=== PATIENT | female | born 1955 | race African-American/Black ===

== ENCOUNTER 2020-03-17 21:25 | Inpatient (IN) | payer MEDICAID ==
[~2020-03-17] VITALS: Ht 167.6 cm; Wt 188.2 kg
[~2020-03-17 21:25] MED LIST: ALBU18HF2 IH; ALBU2.5V13 IH; ASPI-1497 PO; ATOR20TA65 PO; CYCL5TAB PO; DILT180C66 MT; FLUT1DIS3 IH; HYDR-3927 PO; HYDR10SY11 PO; HYDR25TA PO; IBUP-2028 PO; KEPP500 PO; LEVE500T19 PO; LORA10TA7 PO; MELO-106 PO; METF500T20 PO; MONT10TA26 PO; SERT-112 PO; ZIPR80CA2 PO
[2020-03-18] MEDS ORDERED: ASPIRIN 81MG TABLET PO ONE (03:45)
[2020-03-18] MEDS ORDERED: NITROGLYCERIN 0.4MG TABLET SL SL PRN (03:45)
[2020-03-18 05:20] LABS: BASOPHILS % 0.7 % (0.0-2.0); CHLORIDE 105 mEq/L (98-107); EOSINOPHILS % 1.3 % (0.0-5.0); HEMATOCRIT. 40.1 % (36.0-48.0); LYMPHOCYTES % 31.4 % (20.0-50.0); MEAN CORPUSCULAR HEMOGLOBIN 30.5 pg (28.0-32.0); MEAN CORPUSCULAR VOLUME 93.9 fL (81.0-99.0); MEAN PLATELET VOLUME 10.8 fl (7.4-10.4); MONOCYTES % 5.8 % (2.0-8.0); NEUTROPHILS % 60.8 % (40.0-76.0); PLATELET 254 x1000/uL (130-400); RED BLOOD CELL COUNT 4.28 mill/uL (4.2-5.4); RED CELL DISTRIBUTION WIDTH 16.8 % (11.6-14.6)
[2020-03-18] MEDS ORDERED: ONDANSETRON HCL 4MG/2ML INJ IV PRN (11:45)
[2020-03-18] MEDS ORDERED: ACETAMINOPHEN 325MG TABLET PO PRN (11:45)
[2020-03-18] MEDS ORDERED: ENOXAPARIN 40MG/0.4ML SYR SUBCUT SCH (12:00)
[2020-03-18] MEDS: APIXABAN 5 MG TABLET PO SCH (14:30)
[2020-03-18] MEDS: DILTIAZEM HCL 60MG TABLET PO SCH (18:00)
[2020-03-18] MEDS: TRAMADOL 50MG TABLET PO PRN (20:19)
[2020-03-18 21:20] VITALS: BP 157/87
[2020-03-19 00:20] VITALS: BP 156/77
[2020-03-19] MEDS: LEVETIRACETAM 500MG TABLET PO SCH ×3 (01:30→22:35)
[2020-03-19] MEDS: APIXABAN 5 MG TABLET PO SCH ×3 (01:30→22:35)
[2020-03-19] MEDS: ATORVASTATIN CALCIUM 20MG TABLET PO SCH ×2 (01:30→22:34)
[2020-03-19] MEDS: DILTIAZEM HCL 60MG TABLET PO SCH ×2 (01:31→06:40)
[2020-03-19] MEDS ORDERED: HYDR50TA55 MT (02:35)
[2020-03-19] MEDS ORDERED: LACT10SO6 MT (02:35)
[2020-03-19] MEDS ORDERED: GABA-531 MT (02:35)
[2020-03-19] MEDS ORDERED: PANT40TA4 MT (02:35)
[2020-03-19] MEDS ORDERED: ALBU18HF2 IH ×2 (02:35)
[2020-03-19] MEDS ORDERED: MULT-1146 MT (02:35)
[2020-03-19] MEDS ORDERED: METH500T6 MT (02:35)
[2020-03-19] MEDS ORDERED: LISI-604 MT (02:35)
[2020-03-19] MEDS ORDERED: LIDO1ADH48 TP (02:35)
[2020-03-19] MEDS ORDERED: AMLO2.5T45 MT (02:35)
[2020-03-19] MEDS ORDERED: LEVO25TA7 MT (02:35)
[2020-03-19] MEDS ORDERED: LURA80TA MT (02:35)
[2020-03-19] MEDS ORDERED: DOCU-150 MT (02:35)
[2020-03-19] MEDS ORDERED: LIDO30CR46 TP (02:44)
[2020-03-19] MEDS ORDERED: LIDOCAINE TP PRN (03:15)
[2020-03-19] MEDS ORDERED: LACTULOSE 20G/30ML UDC PO PRN (03:15)
[2020-03-19] MEDS ORDERED: DEXTROSE 50% WATER 50ML SYRINGE IV PRN (03:30)
[2020-03-19] MEDS ORDERED: IPRATROPIUM/ALBUTEROL 0.5-3(2.5)MG/3ML NEB HHN PRN (03:30)
[2020-03-19] MEDS ORDERED: CYCLOBENZAPRINE 10MG TABLET PO PRN (03:30)
[2020-03-19] MEDS ORDERED: SUCR1TAB PO (03:38)
[2020-03-19] MEDS: TRAMADOL 50MG TABLET PO PRN (03:58)
[2020-03-19 04:00] VITALS: BP 132/58
[2020-03-19] MEDS: PANTOPRAZOLE 40MG DR TABLET PO SCH (06:41)
[2020-03-19] MEDS: BLOOD SUGAR DIAGNOSTIC STRIP TEST SCH ×4 (06:42→21:00)
[2020-03-19] MEDS ORDERED: LEVOTHYROXINE SODIUM 25MCG TABLET PO SCH (07:20)
[2020-03-19 08:00] VITALS: BP 140/60
[2020-03-19] MEDS: ALBUTEROL (0.083%) 2.5MG/3ML NEB HHN SCH ×3 (08:41→21:43)
[2020-03-19] MEDS: BUDESONIDE 0.5MG/2ML NEB HHN SCH ×2 (08:42→13:59)
[2020-03-19] MEDS ORDERED: MEDICATION NOT ON FORMULARY EA (Fluticasone/Salmeterol (Advair 250-50 Diskus) 1 EACH) IH SCH (09:00)
[2020-03-19] MEDS ORDERED: INFLUENZA VACCINE 05/PF 0.5 ML VIAL IM ONE (10:00)
[2020-03-19] MEDS: INSULIN LISPRO 100 UNITS/ML SUBCUT SCH ×4 (10:01→21:00)
[2020-03-19] MEDS: ASPIRIN 81MG TABLET PO SCH (10:01)
[2020-03-19] MEDS: MULTIVITAMINS,THER W-MINERALS TABLET PO SCH (10:02)
[2020-03-19] MEDS: METFORMIN HCL 500MG TABLET PO SCH ×2 (10:02→18:36)
[2020-03-19] MEDS: GABAPENTIN 300MG CAPSULE PO SCH ×3 (10:03→18:36)
[2020-03-19] MEDS: DOCUSATE SODIUM 100MG CAPSULE PO SCH ×2 (10:03→17:00)
[2020-03-19] MEDS: SERTRALINE HCL 100MG TABLET PO SCH (10:03)
[2020-03-19] MEDS: ZIPRASIDONE HCL 40MG CAPSULE PO SCH (10:04)
[2020-03-19] MEDS: LISINOPRIL 20MG TABLET PO SCH (10:05)
[2020-03-19 11:00] LABS: BASOPHILS % 0.8 % (0.0-2.0); EOSINOPHILS % 1.9 % (0.0-5.0); HEMATOCRIT. 36.9 % (36.0-48.0); HEMOGLOBIN. 12.2 g/dL (12.0-16.0); LYMPHOCYTES % 28.4 % (20.0-50.0); MEAN CORPUSCULAR HEMOGLOBIN 31.2 pg (28.0-32.0); MEAN CORPUSCULAR VOLUME 94.4 fL (81.0-99.0); MEAN PLATELET VOLUME 10.1 fl (7.4-10.4); MONOCYTES % 4.9 % (2.0-8.0); PLATELET 215 x1000/uL (130-400); RED BLOOD CELL COUNT 3.91 mill/uL (4.2-5.4); RED CELL DISTRIBUTION WIDTH 17.1 % (11.6-14.6)
[2020-03-19 11:15] LABS: CHLORIDE 105 mEq/L (98-107)
[2020-03-19 11:24] LABS: HDL CHOLESTEROL 45 mg/dL (40-59); LDL CHOLESTEROL 131 mg/dL (5-100); T4 FREE 0.48 ng/dL (0.76-1.46)
[2020-03-19 12:00] VITALS: BP 123/56
[2020-03-19] MEDS: DILTIAZEM HCL 90MG TABLET PO SCH ×2 (12:00→18:00)
[2020-03-19] MEDS: LIDOCAINE 5% PATCH TOP SCH (13:00)
[2020-03-19 16:00] VITALS: BP 133/58
[2020-03-19] MEDS ORDERED: MONTELUKAST SODIUM 10MG TABLET PO SCH (17:00)
[2020-03-19 20:00] VITALS: BP 140/66
[2020-03-19] MEDS ORDERED: HYDROXYZINE 25MG TABLET PO PRN (21:00)
[2020-03-19] MEDS ORDERED: MEDICATION NOT ON FORMULARY EA (Lurasidone Hcl (Latuda) 1 TAB) MT SCH (21:00)
[2020-03-20 00:28] VITALS: BP 116/52
[2020-03-20] MEDS: DILTIAZEM HCL 90MG TABLET PO SCH ×3 (00:53→12:00)
[2020-03-20] MEDS: ALBUTEROL (0.083%) 2.5MG/3ML NEB HHN SCH ×3 (01:12→12:18)
[2020-03-20 04:00] VITALS: BP 133/66
[2020-03-20] MEDS: PANTOPRAZOLE 40MG DR TABLET PO SCH (06:50)
[2020-03-20] MEDS: TRAMADOL 50MG TABLET PO PRN (06:59)
[2020-03-20] MEDS: BLOOD SUGAR DIAGNOSTIC STRIP TEST SCH ×2 (07:20→11:58)
[2020-03-20] MEDS ORDERED: LEVOTHYROXINE SODIUM 50MCG TABLET PO SCH (07:20)
[2020-03-20 08:00] VITALS: BP 120/60
[2020-03-20] MEDS: METFORMIN HCL 500MG TABLET PO SCH (08:13)
[2020-03-20] MEDS: INSULIN LISPRO 100 UNITS/ML SUBCUT SCH ×2 (08:16→12:50)
[2020-03-20] MEDS: BUDESONIDE 0.5MG/2ML NEB HHN SCH (08:30)
[2020-03-20] MEDS: GABAPENTIN 300MG CAPSULE PO SCH ×2 (09:30→13:17)
[2020-03-20] MEDS: LEVETIRACETAM 500MG TABLET PO SCH (09:30)
[2020-03-20] MEDS: APIXABAN 5 MG TABLET PO SCH (09:30)
[2020-03-20] MEDS: SERTRALINE HCL 100MG TABLET PO SCH (09:30)
[2020-03-20] MEDS: DOCUSATE SODIUM 100MG CAPSULE PO SCH (09:30)
[2020-03-20] MEDS: MULTIVITAMINS,THER W-MINERALS TABLET PO SCH (09:30)
[2020-03-20] MEDS: ZIPRASIDONE HCL 40MG CAPSULE PO SCH (09:30)
[2020-03-20] MEDS: ASPIRIN 81MG TABLET PO SCH (09:31)
[2020-03-20] MEDS: LISINOPRIL 20MG TABLET PO SCH (09:31)
[2020-03-20] MEDS: LIDOCAINE 5% PATCH TOP SCH (09:32)
[2020-03-20 12:00] VITALS: BP 100/78
[2020-03-20] MEDS ORDERED: DILT360C27 MT (12:48)
[2020-03-20] MEDS ORDERED: LEVO50TA8 PO (12:48)
[2020-03-20] MEDS ORDERED: APIX5TAB PO (12:48)
[2020-03-20 15:20] VITALS: BP 101/80
== END 2020-03-20 18:08 | disposition home or self-care (01) | DRG 201 ==
LOC: ER 21:25 → 6WST 03-18 05:15 → EDBEDREQ 03-18 05:24 → EDBEDREQTM 03-18 05:24 → ENRESERV 03-18 19:47
PROVIDERS: ADMIT Internal Medicine; ATTEND Internal Medicine
DX: I48.19 Other persistent atrial fibrillation (principal); I48.0 Paroxysmal atrial fibrillation; E11.9 Type 2 diabetes mellitus without complications; G40.909 Epilepsy, unspecified, not intractable, without status epilepticus; E78.5 Hyperlipidemia, unspecified; J44.9 Chronic obstructive pulmonary disease, unspecified; G43.909 Migraine, unspecified, not intractable, without status migrainosus; I10 Essential (primary) hypertension; M19.90 Unspecified osteoarthritis, unspecified site; M54.30 Sciatica, unspecified side; E66.01 Morbid (severe) obesity due to excess calories; E03.9 Hypothyroidism, unspecified; R07.89 Other chest pain; F20.9 Schizophrenia, unspecified; G47.30 Sleep apnea, unspecified; Z68.44 Body mass index [BMI] 60.0-69.9, adult; Z86.73 Personal history of transient ischemic attack (TIA), and cerebral infarction without residual deficits; I25.2 Old myocardial infarction; Z90.710 Acquired absence of both cervix and uterus; Z79.82 Long term (current) use of aspirin; Z79.84 Long term (current) use of oral hypoglycemic drugs; Z79.899 Other long term (current) drug therapy; Z71.3 Dietary counseling and surveillance
CPT/HCPCS: 36415; 71045; 80048; 80053; 80061; 82962; 83036; 83880; 84439; 84443; 84484; 85025; 85379; 93005; 93306; 97162; 99285; J1815; J7626

== ENCOUNTER 2021-02-16 20:44 | Emergency (ER) | payer MEDICAID, OTHER ==
[~2021-02-16] VITALS: Ht 162.6 cm; Wt 160.0 kg
[~2021-02-16 20:44] MED LIST changes: +AMLO2.5T45 MT; +APIX5TAB PO; +DILT360C27 MT; +DOCU-150 MT; +GABA-532 MT; -HYDR10SY11 PO; +HYDR50TA55 MT; +LACT10SO6 MT; +LEVO25TA7 MT; +LEVO50TA8 PO; +LIDO30CR46 TP; +LISI20TA31 MT; +LURA80TA MT; +METF-907 PO; -METF500T20 PO; +METH-773 MT; -MONT10TA26 PO; +MONT10TA32 PO; +MULT-1146 MT; +PANT40TA51 MT; +SUCR1TAB PO
[2021-02-16] MEDS ORDERED: ONDANSETRON HCL 4MG/2ML INJ IV STA (23:45)
[2021-02-16] MEDS ORDERED: SODIUM CHLORIDE 0.9% 1,000 ML IV ONE (23:45)
[2021-02-16] MEDS ORDERED: MORPHINE SULFATE 4 MG/ML CPJ (NOT FOR IM USE) IV STA (23:45)
[2021-02-17 00:21] LABS: BASOPHILS % 0.9 % (0.0-2.0); EOSINOPHILS % 1.9 % (0.0-5.0); HEMATOCRIT. 36.9 % (36.0-48.0); HEMOGLOBIN. 11.8 g/dL (12.0-16.0); LYMPHOCYTES % 27.9 % (20.0-50.0); MEAN CORPUSCULAR VOLUME 93.4 fL (81.0-99.0); MEAN PLATELET VOLUME 9.4 fl (7.4-10.4); MONOCYTES % 6.3 % (2.0-8.0); PLATELET 247 x1000/uL (130-400); RED BLOOD CELL COUNT 3.95 mill/uL (4.2-5.4)
[2021-02-17 00:45] LABS: CHLORIDE 103 mEq/L (98-107)
[2021-02-17 01:41] LABS: PROTHROMBIN TIME 10.6 sec (9.6-11.0)
[2021-02-17] MEDS ORDERED: HYDROCODONE/ACETAMINOPHEN 5/325MG TABLET PO ONE (04:00)
[2021-02-17 04:07] LABS: CLARITY URINE CLEAR (CLEAR); COLOR URINE YELLOW (YELLOW); KETONES URINE NEGATIVE (NEGATIVE); LEUKOCYTE ESTERASE URINE NEGATIVE (NEGATIVE); NITRITE URINE NEGATIVE (NEGATIVE); OCCULT BLOOD URINE NEGATIVE (NEGATIVE); PROTEIN URINE NEGATIVE (NEGATIVE); SPECIFIC GRAVITY URINE 1.012 (1.005-1.030); UROBILINOGEN URINE 0.2 E.U./dL (0.2-1.0)
[2021-02-17] MEDS ORDERED: METH-653 MT (04:51)
[2021-02-17] MEDS ORDERED: IBUP-2029 MT (04:51)
[2021-02-17 05:15] VITALS: BP 108/59
== END 2021-02-17 05:34 | disposition home or self-care (01) ==
LOC: ER 20:44
DX: R10.9 Unspecified abdominal pain (principal); M54.9 Dorsalgia, unspecified; J45.909 Unspecified asthma, uncomplicated; F31.9 Bipolar disorder, unspecified; E11.9 Type 2 diabetes mellitus without complications; I10 Essential (primary) hypertension; I25.2 Old myocardial infarction; G43.909 Migraine, unspecified, not intractable, without status migrainosus; Z90.710 Acquired absence of both cervix and uterus; Z79.899 Other long term (current) drug therapy
CPT/HCPCS: 36415; 71045; 74176; 80053; 81003; 83605; 83690; 85025; 85610; 96361; 96374; 96375; 99285; C1893; J2270; J2405; J7030; Z7610

== ENCOUNTER 2022-09-28 18:41 | Emergency (ER) | payer MEDICARE, OTHER ==
[~2022-09-28] VITALS: Ht 162.6 cm; Wt 175.0 kg
[~2022-09-28 18:41] MED LIST changes: +IBUP-2029 MT; -LURA80TA MT; +LURA80TA2 MT; +METH-653 MT; +MONT-39 PO; -MONT10TA32 PO
[2022-09-28] MEDS ORDERED: KETOROLAC 60MG/2ML VIAL IM ONE (20:45)
[2022-09-28 20:47] VITALS: BP 146/44
[2022-09-28] MEDS ORDERED: IBUP-2028 MT (22:39)
== END 2022-09-28 22:53 | disposition home or self-care (01) ==
LOC: ER 18:41
DX: M54.50 Low back pain, unspecified (principal); M25.532 Pain in left wrist; M79.642 Pain in left hand; M25.571 Pain in right ankle and joints of right foot; M25.561 Pain in right knee; R51.9 Headache, unspecified; E11.9 Type 2 diabetes mellitus without complications; I25.2 Old myocardial infarction; I10 Essential (primary) hypertension; Z79.899 Other long term (current) drug therapy; Z86.59 Personal history of other mental and behavioral disorders; W18.30XA Fall on same level, unspecified, initial encounter; Y93.89 Activity, other specified; Y92.89 Other specified places as the place of occurrence of the external cause; Y99.8 Other external cause status
CPT/HCPCS: 70450; 72131; 73110; 73130; 73560; 73610; 96372; 99285; J1885; Z7610